=== PATIENT | male | born 1980 | race Caucasian/White ===

== ENCOUNTER 2016-05-10 17:40 | Emergency (ER) | payer SELFPAY ==
[~2016-05-10] VITALS: Ht 167.6 cm; Wt 78.1 kg
[~2016-05-10 17:40] MED LIST: CIPRO500 MG PO; FLOMAX0.4 MG PO; KEFLEX500 MG PO; MOTRIN600 MG PO; NAPROSYN500 MG PO; PEN-VEE K,VEET500 MG PO; PERCOCET 5/31 TABLET PO; no home med
[2016-05-10] MEDS ORDERED: PEN-VEE K,VEET500 MG PO (19:27)
[2016-05-10] MEDS ORDERED: NORCO 5/3251 TABLET PO (20:25)
[2016-05-10 20:38] VITALS: BP 142/87
== END 2016-05-10 20:43 | disposition home or self-care (01) ==
LOC: EME 17:40 → EXP 17:40
PROC: 0C96XZZ Drainage of Lower Gingiva, External Approach (ICD-10-PCS; principal; 2016-05-10)
DX: K04.7 Periapical abscess without sinus (principal)
CPT/HCPCS: 99281; 99284